=== PATIENT | female | born 1960 | race Caucasian/White ===

== ENCOUNTER 2018-01-07 09:59 | Emergency (ER) | payer BC ==
[2018-01-07] MEDS ORDERED: NA CHLORIDE 0.9% 500 ML ONE (11:04)
[2018-01-07] MEDS ORDERED: METHYLPREDNISOLONE 125 MG INJ ONE (11:04)
[2018-01-07] MEDS ORDERED: DIPHENHYDRAMINE 50 MG/ML VIAL ONE ×2 (11:04→13:11)
[2018-01-07] MEDS ORDERED: FAMOTIDINE 20 MG/2 ML VIAL IV ONE (11:06)
--- NOTE | 2018-01-07 14:15 | EDPHYS ---
Physician Documentation [facility] Name: Natalia Lopez Age: 57 yrs Sex: Female : 1960 Arrival Date: 01/07/2018 Time: 10:01 Bed 15 Private MD: Singh Tran R ED Physician Noel Ribera HPI: 01/07 10:56 This 57 yrs old Female presents to ER via Ambulatory with complaints of rn Allergic Reaction. 10:56 The patient presents with itching, rash, swelling of the lips. Onset: The rn symptoms/episode began/occurred yesterday. Associated signs and symptoms: The patient has no apparent associated signs or symptoms. Severity of symptoms: At their worst the symptoms were mild in the emergency department the symptoms are unchanged. The patient has not experienced similar symptoms in the past. The patient has been recently seen by a physician:. Reports seen yesterday, got IV contrast for CT, had trouble breathing, got better, observed, sent home, returns with rash and swelling of face, no other precipitant.. Historical: - Allergies: 10:17 hydrocodone; aj1 10:17 aleeve; aj1 - Home Meds: 10:17 lisinopril-hydrochlorothiazide 20-25 mg oral tab 1 tab once daily [Active]; atenolol aj1 100 mg Oral tab 1 tab once daily [Active]; glimepiride 4 mg Oral tab 1 tab once daily [Active]; metformin 500 mg Oral tab 1 tab 2 times per day [Active]; - PMHx: 10:17 Diabetes - NIDDM; Hypertension; aj1 - PSHx: 10:17 Cholecystectomy; Appendectomy; Hysterectomy; Tonsillectomy; aj1 - Immunization history:: Flu vaccine is not up to date. - Social history:: Smoking status: Patient/guardian denies using tobacco. - Ebola Screening: : Patient denies travel to an Ebola-affected area in the 21 days before illness onset. - Family history:: not pertinent. - Hospitalizations: : No recent hospitalization is reported. ROS: 10:56 Constitutional: Negative for fever, chills, and weight loss, Eyes: Negative for injury, rn pain, redness, and discharge, Neck: Negative for injury, pain, and swelling, Cardiovascular: Negative for chest pain, palpitations, and edema, Respiratory: Negative for shortness of breath, cough, wheezing, and pleuritic chest pain, Abdomen/GI: Negative for abdominal pain, nausea, vomiting, diarrhea, and constipation, MS/Extremity: Negative for injury and deformity, Skin: + rash and itching Neuro: Negative for headache, weakness, numbness, tingling, and seizure. Exam: 10:56 Constitutional: This is a well developed, well nourished patient who is awake, alert, rn and in no acute distress. Head/Face: Normocephalic, atraumatic. Eyes: Pupils equal round and reactive to light, extra-ocular motions intact. Lids and lashes normal. Conjunctiva and sclera are non-icteric and not injected. Cornea within normal limits. Periorbital areas with no swelling, redness, or edema. ENT: no oral lesions, no stridor Cardiovascular: Regular rate and rhythm with a normal S1 and S2. No gallops, murmurs, or rubs. Normal PMI, no JVD. No pulse deficits. Respiratory: Lungs have equal breath sounds bilaterally, clear to auscultation and percussion. No rales, rhonchi or wheezes noted. No increased work of breathing, no retractions or nasal flaring. Abdomen/GI: Soft, non-tender, with normal bowel sounds. No distension or tympany. No guarding or rebound. No evidence of tenderness throughout. Skin: + diffuse erythema and urticaria, worse upper torso and head, no skin sloughing, no petechiae, no bullae MS/ Extremity: Pulses equal, no cyanosis. Neurovascular intact. Full, normal range of motion. Equal circumference. Neuro: Awake and alert, GCS 15, oriented to person, place, time, and situation. Cranial nerves II-XII grossly intact. Motor strength 5/5 in all extremities. Sensory grossly intact. Vital Signs: 10:17 BP 155 / 75; Pulse 80; Resp 20; Temp 97.6(O); Pulse Ox 100% on R/A; Weight 115.67 kg aj1 (R); Height 5 ft. 6 in. (167.64 cm) (R); Pain 5/10; 11:15 BP 134 / 80; Pulse 75; Resp 19; Pulse Ox 100% on R/A; rb1 12:15 BP 132 / 78; Pulse 75; Resp 19; Pulse Ox 100% ; rb1 13:14 BP 147 / 93; Pulse 71; Resp 17; Pulse Ox 100% on R/A; rb1 14:14 BP 126 / 69; Pulse 89; Resp 17; Pulse Ox 98% on R/A; rb1 10:17 Body Mass Index 41.16 (115.67 kg, 167.64 cm) aj1 MDM: 10:21 Patient medically screened. rn 14:13 Differential diagnosis: angioedema, non IgE mediated drug reaction urticaria. Data rn reviewed: vital signs, nurses notes, and as a result, I will discharge patient. Counseling: I had a detailed discussion with the patient and/or guardian regarding: the historical points, exam findings, and any diagnostic results supporting the discharge/admit diagnosis, the need for outpatient follow up, to return to the emergency department if symptoms worsen or persist or if there are any questions or concerns that arise at home. Response to treatment: the patient's symptoms have markedly improved after treatment, and as a result, I will discharge patient. Special discussion: I discussed with the patient/guardian in detail that at this point there is no indication for admission to the hospital. It is understood, however, that if the symptoms persist or worsen the patient needs to return immediately for re-evaluation. 01/07 10:32 Order name: IV Start; Complete Time: 11:11 rn Administered Medications: 11:10 Drug: NS 0.9% 500 ml Route: IV; Rate: bolus; Site: left hand; rb1 12:03 Follow up: IV Status: Completed infusion rb1 11:11 Drug: SOLU-Medrol 125 mg Route: IVP; Site: left hand; rb1 11:30 Follow up: Response: No adverse reaction; Marked relief of symptoms rb1 11:11 Drug: Benadryl 25 mg Route: IVP; Site: left hand; rb1 11:30 Follow up: Response: No adverse reaction; Marked relief of symptoms rb1 11:11 Drug: Pepcid 20 mg Route: IVP; Site: left hand; rb1 11:30 Follow up: Response: No adverse reaction; Marked relief of symptoms rb1 13:15 Drug: Benadryl 25 mg Route: IVP; Site: left hand; rb1 13:35 Follow up: Response: No adverse reaction; Marked relief of symptoms rb1 Disposition: 01/07/18 14:14 Discharged to Home. Impression: Acute allergic reaction, Urticaria, unspecified. - Condition is Stable. - Discharge Instructions: Hives, Angioedema. - Prescriptions for Prednisone 20 mg Oral Tablet - take 3 tablet by ORAL route once daily for 5 days; 15 tablet. - Medication Reconciliation Form, Thank You Letter, Antibiotic Education, Prescription Opioid Use form. - Follow up: Singh Tran MD; When: As needed; Reason: Recheck today's complaints, Re-evaluation by your physician. - Problem is new. - Symptoms have improved. Signatures: Courtney Mcgrath RN RN aj1 Noel Ribera MD MD rn Teressa Kauffman RN RN rb1 Corrections: (The following items were deleted from the chart) 14:26 14:14 01/07/2018 14:14 Discharged to Home. Impression: Acute allergic reaction; rb1 Urticaria, unspecified. Condition is Stable. Forms are Medication Reconciliation Form, Thank You Letter, Antibiotic Education, Prescription Opioid Use. Follow up: Singh Tran; When: As needed; Reason: Recheck today's complaints, Re-evaluation by your physician. Problem is new. Symptoms have improved. rn
--- NOTE | 2018-01-07 14:15 | ER ---
Nurse's Notes [facility] Name: Natalia Lopez Age: 57 yrs Sex: Female : 1960 Arrival Date: 01/07/2018 Time: 10:01 Bed 15 Private MD: Singh Tran R Diagnosis: Acute allergic reaction;Urticaria, unspecified Presentation: 01/07 10:12 Presenting complaint: Patient states: I had a CT scan yesterday with the IV dye, I aj1 started having trouble breathing so they pulled me out and stopped the test. I felt a little better after they pulled me out. I drank some water and went to bed, I woke up feel short of breath and shaky and I have this rash all over me. Transition of care: patient was not received from another setting of care. Onset: The symptoms/episode began/occurred acutely. Anaphylaxis evaluation, abdominal pain. Onset of symptoms was January 06, 2018. Risk Assessment: Do you want to hurt yourself or someone else? Patient reports no desire to harm self or others. Initial Sepsis Screen: Does the patient meet any 2 criteria? No. Patient's initial sepsis screen is negative. Does the patient have a suspected source of infection? No. Patient's initial sepsis screen is negative. Care prior to arrival: None. 10:12 Method Of Arrival: Ambulatory aj1 10:12 Acuity: SUDHEER 3 aj1 Triage Assessment: 10:17 General: Appears in no apparent distress. uncomfortable, Behavior is calm, cooperative, aj1 appropriate for age. Pain: Complains of pain in abdomen Pain does not radiate. Pain currently is 5 out of 10 on a pain scale. Historical: - Allergies: 10:17 hydrocodone; aj1 10:17 aleeve; aj1 - Home Meds: 10:17 lisinopril-hydrochlorothiazide 20-25 mg oral tab 1 tab once daily [Active]; atenolol aj1 100 mg Oral tab 1 tab once daily [Active]; glimepiride 4 mg Oral tab 1 tab once daily [Active]; metformin 500 mg Oral tab 1 tab 2 times per day [Active]; - PMHx: 10:17 Diabetes - NIDDM; Hypertension; aj1 - PSHx: 10:17 Cholecystectomy; Appendectomy; Hysterectomy; Tonsillectomy; aj1 - Immunization history:: Flu vaccine is not up to date. - Social history:: Smoking status: Patient/guardian denies using tobacco. - Ebola Screening: : Patient denies travel to an Ebola-affected area in the 21 days before illness onset. - Family history:: not pertinent. - Hospitalizations: : No recent hospitalization is reported. Screenin:25 Abuse screen: Denies threats or abuse. Nutritional screening: No deficits noted. rb1 Tuberculosis screening: No symptoms or risk factors identified. Fall Risk None identified. Assessment: 10:25 General: Appears in no apparent distress. comfortable, obese, Behavior is calm, rb1 cooperative, Reports chills for 12-24 hours, Denies fever. General: pt. complains of diarrhea cramps.. Pain: Complains of pain in abdomen Pain currently is 5 out of 10 on a pain scale. Neuro: Level of Consciousness is awake, alert, obeys commands, Oriented to person, place, time, situation. Cardiovascular: Capillary refill < 3 seconds is brisk in bilateral fingers. Respiratory: Airway is patent Respiratory effort is even, unlabored, Respiratory pattern is regular, symmetrical, Breath sounds are clear bilaterally. GI: Reports diarrhea, since yesterday. : No signs and/or symptoms were reported regarding the genitourinary system. Derm: Rash noted that is red, on generalized. Musculoskeletal: Range of motion: intact in all extremities. 11:25 Reassessment: Patient appears in no apparent distress at this time. Patient and/or rb1 family updated on plan of care and expected duration. Pain level reassessed. Patient is alert, oriented x 3, equal unlabored respirations, skin warm/dry/pink. Patient states symptoms have improved. 12:20 Reassessment: Patient appears in no apparent distress at this time. No changes from rb1 previously documented assessment. 13:20 Reassessment: Patient appears in no apparent distress at this time. Patient and/or rb1 family updated on plan of care and expected duration. Pain level reassessed. Patient is alert, oriented x 3, equal unlabored respirations, skin warm/dry/pink. 14:15 Reassessment: Patient appears in no apparent distress at this time. No changes from rb1 previously documented assessment. Vital Signs: 10:17 BP 155 / 75; Pulse 80; Resp 20; Temp 97.6(O); Pulse Ox 100% on R/A; Weight 115.67 kg aj1 (R); Height 5 ft. 6 in. (167.64 cm) (R); Pain 5/10; 11:15 BP 134 / 80; Pulse 75; Resp 19; Pulse Ox 100% on R/A; rb1 12:15 BP 132 / 78; Pulse 75; Resp 19; Pulse Ox 100% ; rb1 13:14 BP 147 / 93; Pulse 71; Resp 17; Pulse Ox 100% on R/A; rb1 14:14 BP 126 / 69; Pulse 89; Resp 17; Pulse Ox 98% on R/A; rb1 10:17 Body Mass Index 41.16 (115.67 kg, 167.64 cm) aj1 ED Course: 10:01 Patient arrived in ED. sb2 10:01 Singh Tran MD is Private Physician. sb2 10:14 Triage completed. aj1 10:17 Arm band placed on Patient placed in an exam room. aj1 10:21 Noel Ribera MD is Attending Physician. rn 10:25 Patient has correct armband on for positive identification. Bed in low position. Call rb1 light in reach. Side rails up X 1. Pulse ox on. NIBP on. 10:30 Missed attempt(s): 22 gauge in left antecubital area. rb1 10:50 Inserted saline lock: 22 gauge in left hand, using aseptic technique. ,using aseptic rb1 technique. IV inserted by ЕЛЕНА Jay. 11:00 Teressa Kauffman, RN is Primary Nurse. rb1 14:13 Sinhg Tran MD is Referral Physician. rn 14:25 No provider procedures requiring assistance completed. IV discontinued, intact, rb1 bleeding controlled, No redness/swelling at site. Pressure dressing applied. Administered Medications: 11:10 Drug: NS 0.9% 500 ml Route: IV; Rate: bolus; Site: left hand; rb1 12:03 Follow up: IV Status: Completed infusion rb1 11:11 Drug: SOLU-Medrol 125 mg Route: IVP; Site: left hand; rb1 11:30 Follow up: Response: No adverse reaction; Marked relief of symptoms rb1 11:11 Drug: Benadryl 25 mg Route: IVP; Site: left hand; rb1 11:30 Follow up: Response: No adverse reaction; Marked relief of symptoms rb1 11:11 Drug: Pepcid 20 mg Route: IVP; Site: left hand; rb1 11:30 Follow up: Response: No adverse reaction; Marked relief of symptoms rb1 13:15 Drug: Benadryl 25 mg Route: IVP; Site: left hand; rb1 13:35 Follow up: Response: No adverse reaction; Marked relief of symptoms rb1 Outcome: 14:14 Discharge ordered by . rn 14:25 Discharged to home ambulatory. rb1 14:25 Condition: stable 14:25 Discharge instructions given to patient, Instructed on discharge instructions, follow up and referral plans. medication usage, Demonstrated understanding of instructions, follow-up care, medications, Prescriptions given X 1. 14:26 Patient left the ED. rb1 Signatures: Courtney Mcgrath RN RN aj1 Noel Ribera MD MD rn Barber, Rebecca RN RN rb1 Marisol Dominique2
== END 2018-01-07 14:26 | disposition home or self-care (01) ==
LOC: ER 09:59
DX: L50.0 Allergic urticaria (principal); Z88.5 Allergy status to narcotic agent; Z88.8 Allergy status to other drugs, medicaments and biological substances; I10 Essential (primary) hypertension; E11.9 Type 2 diabetes mellitus without complications; Z79.84 Long term (current) use of oral hypoglycemic drugs
CPT/HCPCS: 96361; 96374; 96375; 99284; J2930